=== PATIENT | female | born 1980 | race Caucasian/White ===

== ENCOUNTER 2016-09-06 09:12 | Emergency (ER) | payer OTHER ==
[2016-09-06 09:20] VITALS: BP 120/72; PULSE 55; RESP 20; TEMP 97.8; O2SAT 97
--- NOTE | 2016-09-06 09:53 | ED PDOC ---
HPI: General Adult Time Seen by Provider: 09/06/16 09:38 Chief Complaint (Nursing): Abdominal Pain Chief Complaint (Provider): abdominal pain History Per: Patient History/Exam Limitations: no limitations Additional Complaint(s): 35yo female comes to the ED complaining of nausea and abdominal pain. Also reports chills, but denies fever, diarrhea. no urinary symptoms. There was vomit two days ago and yesterday but not today. Past Medical History Reviewed: Historical Data, Nursing Documentation, Vital Signs Vital Signs: Last Vital Signs Temp 97.8 F 09/06/16 09:19 Pulse 55 L 09/06/16 09:19 Resp 20 09/06/16 09:19 BP 120/72 09/06/16 09:19 Pulse Ox 97 09/06/16 14:23 - Medical History PMH: No Chronic Diseases - Surgical History Surgical History: Other surgeries: tubal ligation - Family History Family History: States: Unknown Family Hx - Living Arrangements Living Arrangements: With Family - Home Medications Home Medications: Ambulatory Orders Medication Instructions Recorded Famotidine [Pepcid] 20 mg PO DAILY #14 tab 09/06/16 - Allergies Allergies/Adverse Reactions: Allergies Allergy/AdvReac Type Severity Reaction Status Date / Time No Known Allergies Allergy Verified 09/06/16 09:57 Review of Systems ROS Statement: Except As Marked, All Systems Reviewed And Found Negative Constitutional: Positive for: Chills. Negative for: Fever Gastrointestinal: Positive for: Nausea, Vomiting, Abdominal Pain. Negative for : Diarrhea Genitourinary Female: Negative for: Dysuria, Frequency, Incontinence, Hematuria Physical Exam - Reviewed Nursing Documentation Reviewed: Yes Vital Signs Reviewed: Yes - Physical Exam Appears: Positive for: Well, Non-toxic, No Acute Distress Head Exam: Positive for: ATRAUMATIC, NORMAL INSPECTION, NORMOCEPHALIC Skin: Positive for: Warm, Dry Eye Exam: Positive for: EOMI, PERRL Cardiovascular/Chest: Positive for: Regular Rate, Rhythm Respiratory: Positive for: Normal Breath Sounds. Negative for: Rales, Rhonchi, Wheezing Gastrointestinal/Abdominal: Positive for: Normal Exam, Bowel Sounds, Soft. Negative for: Tenderness Back: Positive for: L CVA Tenderness. Negative for: R CVA Tenderness Extremity: Positive for: Normal ROM Neurologic/Psych: Positive for: Alert, Oriented - Laboratory Results Result Diagrams: 09/06/16 11:17 09/06/16 11:17 - ECG O2 Sat by Pulse Oximetry: 97 (RA) Pulse Ox Interpretation: Normal - CT Scan/US US Gallbladder Other Rad Studies (CT/US): Read By Radiologist, Radiology Report Reviewed Medical Decision Making Medical Decision Makin complication, UTI, gastritis, pyelonephritis Plan: -labs -zofran -US Gallbladder -IV fluids -reassess US Gallbladder Impression No acute findings. Disposition - Clinical Impression Clinical Impression: Abdominal pain, Gastritis - Patient ED Disposition Is Patient to be Admitted: No Doctor Will See Patient In The: Office Counseled Patient/Family Regarding: Studies Performed, Diagnosis, Need For Followup - Disposition Referrals: [facility] [Outside] Disposition: Routine/Home Disposition Time: 14:20 Condition: GOOD Additional Instructions: Return for worsening. Follow up with your PCP in 2-3 days. Regreso por empeoramiento. Siga con rothman medico en 2-3 castañeda. Prescriptions: Famotidine [Pepcid] 20 mg PO DAILY #14 tab Instructions: Abdominal Pain (ED) Print Language: NEPALI Additional Comments - Additional Comments Additional Comments: Scribe Attestation: Documented by Jerry West acting as a scribe for Susan Saunders MD. Provider Scribe Attestation: All medical record entries made by the Scribe were at my direction and personally dictated by me. I have reviewed the chart and agree that the record accurately reflects my personal performance of the history, physical exam, medical decision making, and the department course for this patient. I have also personally directed, reviewed, and agree with the discharge instructions and disposition.
[2016-09-06] MEDS ORDERED: Sodium Chloride 0.9% 1,000 ML IV STA (10:10)
[2016-09-06 11:26] LABS: BASO % 0.2 % (0.0-2.0); EOS # 0.1 K/uL (0.0-0.7); EOS % 1.8 % (0.0-4.0); LYMPH # 0.7 K/uL (1.0-4.3); LYMPH % 17.1 % (20.0-40.0); MEAN CELL VOLUME 92.7 fl (81.0-99.0); MEAN CORPUSCULAR HGB CONC 33.5 g/dL (33.0-37.0); MEAN PLATELET VOLUME 9.9 fl (7.2-11.7); MONO # 0.4 K/uL (0.0-0.8); MONO % 9.7 % (0.0-10.0); NEUT # 3.1 K/uL (1.8-7.0); NEUT % 71.2 % (50.0-75.0); RED CELL DISTRIBUTION WIDTH 12.9 % (11.5-14.5); WHITE BLOOD COUNT 4.4 K/uL (4.8-10.8)
[2016-09-06 11:53] LABS: ALB/GLOB RATIO 1.2 (1.0-2.1); AST/SGOT 33 U/L (14-36); BILIRUBIN,TOTAL 0.6 mg/dl (0.2-1.3); CARBON DIOXIDE 21 mmol/L (22-30); GFR AFRICAN-AMERICAN > 60; TOTAL PROTEIN 7.4 G/DL (6.3-8.2)
[2016-09-06 12:05] LABS: BLOOD UREA NITROGEN 14 mg/dl (7-17); CALCIUM 8.5 mg/dL (8.4-10.2); CHLORIDE 108 mmol/L (98-107); GLUCOSE,RANDOM 81 mg/dL (65-105); POTASSIUM 3.8 MMOL/L (3.6-5.0); SODIUM 142 mmol/l (132-148)
[2016-09-06 12:06] LABS: ALKALINE PHOSPHATASE 55 U/L (38-126); ALT/SGPT 28 U/L (9-52); LIPASE 149 U/L (23-300)
--- NOTE | 2016-09-06 13:17 | US ---
HISTORY: epigastric pain COMPARISON: None available TECHNIQUE: Sonographic evaluation of the right upper quadrant of the abdomen. FINDINGS: LIVER: Measures approximately 13.5 cm and appears within normal limits of echogenicity. No focal hepatic mass identified. The main portal vein appears patent with normal directional flow. No intrahepatic bile duct dilatation. GALLBLADDER: No gallstones. No gallbladder wall thickening or pericholecystic edema. Negative sonographic Avila's sign as assessed by the microsoft office instructor. COMMON BILE DUCT: Measures 3 mm. PANCREAS: Not well-visualized. RIGHT KIDNEY: Measures 10.6 x 4.5 x 4.2 cm. No obstructing calculus or hydronephrosis identified. AORTA: Limited visualization appears grossly unremarkable. IVC: Limited visualization appears grossly unremarkable. OTHER FINDINGS: None . IMPRESSION: No acute findings.
== END 2016-09-06 14:57 | disposition home or self-care (01) ==
LOC: H.ER 09:12
DX: K29.70 Gastritis, unspecified, without bleeding (principal); R10.13 Epigastric pain

== ENCOUNTER 2018-10-06 15:07 | Emergency (ER) | payer SELFPAY ==
[2018-10-06 15:36] VITALS: PULSE 78
[2018-10-06] MEDS ORDERED: Sodium Chloride 0.9% 1,000 ML IV STA (15:52)
--- NOTE | 2018-10-06 15:53 | ED PDOC ---
Syncope/Near Syncope/Dizziness Time Seen by Provider: 10/06/18 15:41 Chief Complaint (Nursing): Headache Chief Complaint (Provider): syncope History Per: Patient, Family () History/Exam Limitations: no limitations Onset/Duration Of Symptoms: Intermittent Episodes (x years), Worse Since (today) Current Symptoms Are (Timing): Better Additional Complaint(s): 37 year old female with no significant medical history, presents to the emergency department for an evaluation of persistent, diffuse headache ongoing for 1 year. Patient reports intermittent lightheadedness associated with nausea, vomiting, and leg weakness since yesterday which had resolved spontaneously on its own today. She reports that headache is not the worse in her life and had a general (-) work-up in the past without imaging performed. Otherwise, she denies taking medication for relief, shortness of breath, chest pain, abdominal pain, fever, chills, cough, or visual changes. No neck pain. No numbness, tingles. PCP: none provided Past Medical History Reviewed: Historical Data, Nursing Documentation, Vital Signs Vital Signs: Last Vital Signs Temp 98.8 F 10/06/18 15:33 Pulse 78 10/06/18 15:33 Resp 19 10/06/18 15:33 BP 137/80 10/06/18 15:33 Pulse Ox 100 10/06/18 15:33 - Medical History Other PMH: headache - Surgical History Surgical History: - Family History Family History: States: Unknown Family Hx - Home Medications Home Medications: Ambulatory Orders Medication Instructions Recorded Famotidine [Pepcid] 20 mg PO DAILY #14 tab 09/06/16 Metoclopramide [Reglan] 10 mg PO DAILY PRN 5 Days tab 10/06/18 - Allergies Allergies/Adverse Reactions: Allergies Allergy/AdvReac Type Severity Reaction Status Date / Time No Known Allergies Allergy Verified 09/06/16 09:57 Review of Systems ROS Statement: Except As Marked, All Systems Reviewed And Found Negative Constitutional: Negative for: Fever, Chills Eyes: Negative for: Vision Change Cardiovascular: Positive for: Light Headedness. Negative for: Chest Pain Respiratory: Negative for: Cough, Shortness of Breath Gastrointestinal: Positive for: Nausea, Vomiting. Negative for: Abdominal Pain Neurological: Positive for: Weakness (bilateral legs), Headache (diffuse) Physical Exam - Reviewed Nursing Documentation Reviewed: Yes Vital Signs Reviewed: Yes - Physical Exam Appears: Positive for: Non-toxic, No Acute Distress Head Exam: Positive for: ATRAUMATIC, NORMAL INSPECTION, NORMOCEPHALIC Skin: Positive for: Normal Color Eye Exam: Positive for: Normal appearance, EOMI, PERRL ENT: Positive for: Normal ENT Inspection. Negative for: Pharyngeal Erythema Neck: Positive for: Normal, Painless ROM, Supple Cardiovascular/Chest: Positive for: Regular Rate, Rhythm. Negative for: Murmur Respiratory: Positive for: Normal Breath Sounds. Negative for: Respiratory Distress Pulses-Dorsalis Pedis (L): 2+ Pulses-Dorsalis Pedis (R): 2+ Gastrointestinal/Abdominal: Positive for: Normal Exam, Soft. Negative for: Tenderness Back: Positive for: Normal Inspection. Negative for: L CVA Tenderness, R CVA Tenderness, Vertebral Tenderness, Decreased ROM Extremity: Positive for: Normal ROM (upper/lower). Negative for: Tenderness, Pedal Edema Neurological/Psych: Positive for: Awake, Alert, Symmetric/Intact Strength (5/5), Oriented, lean manufacturing engineer II-XII (grossly intact). Negative for: Motor/Sensory Deficits, Facial Droop - ECG O2 Sat by Pulse Oximetry: 100 (RA) Pulse Ox Interpretation: Normal - Progress ED Course And Treament: 1811: Stable. AAOx3. Pain free. Tolerated PO. FU with pcp. Medical Decision Making Medical Decision Making: Time: 1544 Initial Plan: * IV fluids * Urine * Reglan IV Scribe Attestation: Documented by Domitila Ojeda, acting as a scribe for Esteban Martinez MD. Provider Scribe Attestation: All medical record entries made by the Scribe were at my direction and personally dictated by me. I have reviewed the chart and agree that the record accurately reflects my personal performance of the history, physical exam, medical decision making, and the department course for this patient. I have also personally directed, reviewed, and agree with the discharge instructions and disposition. Disposition - Clinical Impression Clinical Impression: Headache - Patient ED Disposition Is Patient to be Admitted: No Counseled Patient/Family Regarding: Studies Performed, Diagnosis, Need For Follo wup, Rx Given - Disposition Referrals: [facility] [Outside] - 10/09/18 Disposition: Routine/Home Disposition Time: 16:15 Condition: STABLE Additional Instructions: Return if not better in 3 days. Prescriptions: Metoclopramide [Reglan] 10 mg PO DAILY PRN 5 Days tab PRN Reason: Pain, Moderate (4-7) Instructions: Headache, Adult (DC) Print Language: FILIPINO
[2018-10-06 18:51] VITALS: BP 122/70; RESP 18; TEMP 98; O2SAT 99
== END 2018-10-06 18:49 | disposition home or self-care (01) ==
LOC: H.ER 15:07
DX: R51 Headache (principal)
CPT/HCPCS: 99284; J2765; J7030